=== PATIENT | female | born 1990 | race Caucasian/White ===

== ENCOUNTER 2021-03-02 14:39 | Outpatient (CLI) | payer OTHER ==
[2021-03-02 15:01] LABS: BASOPHILS # (AUTO) 0.1 10^3/uL (0.0-0.1); BASOPHILS % (AUTO) 0.5 %; EOSINOPHILS # (AUTO) 0.1 10^3/uL (0.0-0.7); HCT - HEMATOCRIT 36.1 % (37.0-47.0); HGB - HEMOGLOBIN 12.7 g/dL (12.0-16.0); LYMPHOCYTES # (AUTO) 3.1 10^3/uL (1.5-3.5); LYMPHOCYTES % (AUTO) 31.3 %; MEAN CORPUSCULAR HEMOGLOBIN 30.9 pg (27.0-31.0); MEAN CORPUSCULAR HGB CONC 35.2 g/dL (32.0-36.0); MEAN CORPUSCULAR VOLUME 87.8 fL (81.0-99.0); MEAN PLATELET VOLUME 9.9 fL (7.9-10.8); MONOCYTES # (AUTO) 0.4 10^3/uL (0.0-1.0); MONOCYTES % (AUTO) 4.4 %; NEUTROPHILS # (AUTO) 6.2 10^3/uL (1.5-6.6); NEUTROPHILS % (AUTO) 62.6 %; PLT - PLATELET COUNT 214 10^3/uL (130-450); RED BLOOD COUNT 4.11 10^6/uL (4.20-5.40); RED CELL DISTRIBUTION WIDTH 11.5 % (12.0-15.0); WHITE BLOOD COUNT 9.9 x10^3/uL (4.8-10.8)
[2021-03-03 11:16] LABS: HEPATITIS C ANTIBODY NON-REACTIVE (NON-REACTIVE)
[2021-03-03 11:17] LABS: HEPATITIS B SURFACE ANTIGEN NON-REACTIVE (NON-REACTIVE)
[2021-03-03 12:22] LABS: HIV AG/AB 4TH GEN NON-REACTIVE (NON-REACTIVE)
== END 2021-03-02 14:40 | disposition home or self-care (01) ==
LOC: LAB 14:39
PROVIDERS: ATTEND Obstetrics & Gynecology
DX: Z36.89 Encounter for other specified antenatal screening (principal)
CPT/HCPCS: 36415; 85025; 86592; 86762; 86787; 86803; 86850; 86900; 86901; 87340; 87389

== ENCOUNTER 2021-03-07 13:21 | Outpatient (CLI) | payer OTHER | END 2021-03-07 13:22 | disposition home or self-care (01) | LOC: LAB.S 13:21 | PROVIDERS: ATTEND Nurse Practitioner Obstetrics & Gynecology | DX: Z32.01 Encounter for pregnancy test, result positive (principal) | CPT/HCPCS: 36415; 84702 ==

== ENCOUNTER 2021-03-09 13:10 | Outpatient (CLI) | payer OTHER | END 2021-03-09 13:11 | disposition home or self-care (01) | LOC: LAB.S 13:10 | PROVIDERS: ATTEND Nurse Practitioner Obstetrics & Gynecology | DX: Z32.01 Encounter for pregnancy test, result positive (principal) | CPT/HCPCS: 36415; 84702; 84703 ==

== ENCOUNTER 2021-03-09 17:57 | Outpatient (CLI) | payer OTHER ==
--- NOTE | 2021-03-10 23:14 | Ultrasound Report ---
PROCEDURE: OB First Trimester w/TV INDICATIONS: TEST POSITIVE OUTSIDE/PRIOR DATING DATA: Last menstrual period (LMP): 12/25/2020. LMP-based estimated date of delivery (JUSTICE): 10/01/2021. First dating scan (date and location): 03/09/2021. Estimated date of delivery (JUSTICE) from first dating scan: Not calculated. TECHNIQUE: Real-time scanning was performed of the fetus and maternal pelvic organs, with image documentation. Endovaginal scanning was also performed to better visualize the fetus and maternal ovaries. COMPARISON: None. FINDINGS: Embryo: Single intrauterine gestational sac is visualized. There is a yolk sac measuring approximate ly 6.9 mm. Yolk sac is slightly irregular in shape. No pole seen. No cardiac activity clyde ntified. Estimated sonographic gestational age based off mean gestational sac diameter of approximate ly 3.1 cm correlates with 8 weeks and 2 days. Measurements were obtained transvaginally. No perigesta tional hemorrhage identified. Measurement variability in dating: +/- 4 weeks by LMP, +/- 7 days by mean sac diameter (use before 6 weeks gestation if crown-rump length not able to be measured), +/- 5 days by crown-rump length (6-12 weeks gestation). Maternal organs: Ovaries appear unremarkable with suspected 1.9 cm right corpus luteal cyst. Otherwi se, no suspicious ovarian or adnexal mass lesions. IMPRESSION: Single intrauterine gestation with estimated sonographic gestational age of approximately 8 weeks and 2 days based off mean gestational sac diameter of 31 mm measured transvaginally. No pole or fe misty cardiac activity identified. Slightly irregular shape of the yolk sac. Recommend continued clinic al surveillance and repeat imaging in 12-14 days to document presence of cardiac activity as ex pected for normal progression of . Consider correlating with serial quantitative hCG levels to document expected rate of rise of a normal prior to follow-up imaging. Reviewed by: Rich Adam MD on 03/10/2021 11:13 PM PDT Approved by: Rich Adam MD on 03/10/2021 11:13 PM PDT Station ID: [id number]
== END 2021-03-09 17:58 | disposition home or self-care (01) ==
LOC: DI 17:57
PROVIDERS: ATTEND Obstetrics & Gynecology
DX: Z32.01 Encounter for pregnancy test, result positive (principal)

== ENCOUNTER 2021-03-12 08:00 | Outpatient (CLI) | payer OTHER ==
[2021-03-12 21:14] LABS: BACTERIAL VAGINOSIS DNA NEGATIVE (NEGATIVE); CANDIDA GLABRATA DNA NEGATIVE (NEGATIVE); CANDIDA GROUP DNA NEGATIVE (NEGATIVE); CANDIDA KRUSEI DNA NEGATIVE (NEGATIVE); TRICHOMONAS VAGINALIS DNA NEGATIVE (NEGATIVE)
== END 2021-03-12 23:59 | disposition home or self-care (01) ==
LOC: LAB.WC 08:00
PROVIDERS: ATTEND Nurse Practitioner Obstetrics & Gynecology
DX: N89.8 Other specified noninflammatory disorders of vagina (principal)
CPT/HCPCS: 87661; 87801

== ENCOUNTER 2021-03-12 08:29 | Outpatient (CLI) | payer OTHER ==
[2021-03-12 08:55] LABS: HCT - HEMATOCRIT 35.9 % (37.0-47.0); HGB - HEMOGLOBIN 12.6 g/dL (12.0-16.0); MEAN CORPUSCULAR HEMOGLOBIN 31.4 pg (27.0-31.0); MEAN CORPUSCULAR HGB CONC 35.1 g/dL (32.0-36.0); MEAN CORPUSCULAR VOLUME 89.5 fL (81.0-99.0); MEAN PLATELET VOLUME 10.1 fL (7.9-10.8); RED BLOOD COUNT 4.01 10^6/uL (4.20-5.40); RED CELL DISTRIBUTION WIDTH 11.8 % (12.0-15.0); WHITE BLOOD COUNT 6.8 x10^3/uL (4.8-10.8)
== END 2021-03-12 08:30 | disposition home or self-care (01) ==
LOC: LAB 08:29
PROVIDERS: ATTEND Nurse Practitioner Obstetrics & Gynecology
DX: O02.1 Missed abortion (principal); N89.8 Other specified noninflammatory disorders of vagina; Z20.822 Contact with and (suspected) exposure to COVID-19
CPT/HCPCS: 36415; 85027; 86900; 86901; 87661; 87801

== ENCOUNTER 2021-03-13 11:48 | Day surgery (SDC) | payer OTHER ==
--- OUTSIDE RECORDS SUMMARY | 2021-03-13 11:55 | EXTERNAL MEDICAL SUMMARY RPT | Continuity of Care Document ---
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 Carmencita Unavailable Unavailable Medications date description facility 20210228 [id number] [facility] [place] 20210228 [id number] [facility] [place] 20210228 [id number] [facility] [place] 20210228 [id number]-FA All 20210228 [id number] All 20210228 [id number]-FA All Problems date description facility [id number] Vaginitis Pathogens-Affirm BPM ARCHITECT III [facility] 20210312 Other specified noninflammatory [facility] & disorders of vagina Ancillary Services [facility] 20210312 Vaginal discharge [facility] 20210312 Missed miscarriage [facility] 20210312 Missed [facility] 20210312 Leukorrhea, not specified as infective [facility] 20210312 COVID19 Testing [facility] 20210312 CBC AND PLATELETS w/o DIFF Walk[facility]In Cli xiomara [facility] 20210312 Blood Type [facility] 20210306 HCG QUANTITATIVE Walk[facility] 20210306 HCG, QUANTITATIVE All 20210228 Varicella Zoster Virus (VZV) Antibody, Walk[facility] & IgG Ancillary Services [facility] 20210228 Tobacco use and exposure [facility] 20210228 examination or test, positive [facility] result [facility] [place] 20210228 Hep C AB with Reflex [facility] [place] 20210228 Exercise Walk[facility]In [facility] [place] 20210228 Encounter for test, result W alk-In Clinic Primary Care & positive [facility] [place] 20210228 Details of drug misuse behavior [facility] [place] 20210228 test positive [facility] [place] 20210228 Employment detail [facility] [place] 20210228 Depressive disorder [facility] [place] 20210228 Chronic back pain [facility] 20210228 US TRANSVAGINAL, OB [facility] [place] 20210228 US OB <14 WEEKS [facility] 20210228 Health-related behavior [facility] 20210228 PROFILE All 20210228 Never smoker All 20210228 Tobacco smoking status NHIS All 20210228 Major depressive disorder, single All episode, unspecified 20210228 HIV 4TH GEN All 20210228 Encounter for other specified All screening 20210228 Dorsalgia, unspecified All 20210228 Depressive disorder, not elsewhere All classified 20210228 Backache, unspecified All 20210228 screening All 20210228 Alcohol use All Procedures date description facility 20210312 COVID19 Testing [facility] [place] 20210312 Blood Type [facility] [place] 20210312 CBC AND PLATELETS w/o DIFF [facility] [place] 20210312 Vaginitis Pathogens-Affirm BPM ARCHITECT III [facility] [place] 20210312 COVID19 Testing [facility] [place] 20210312 Blood Type [facility] [place] 20210312 CBC AND PLATELETS w/o DIFF [facility] [place] 20210306 HCG, QUANTITATIVE Walk[facility] [place] 20210306 HCG QUANTITATIVE [facility] [place] 20210306 HCG, QUANTITATIVE [facility] [place] 20210306 HCG QUANTITATIVE [facility] [place] 20210306 HCG, QUANTITATIVE [facility] [place] 20210306 HCG QUANTITATIVE [facility] [place] [id number] HCG, QUANTITATIVE All 20210306 HCG QUANTITATIVE All 20210228 HIV 4TH GEN [facility] [place] 20210228 Varicella Zoster Virus (VZV) Antibody, [facility] IgG [facility] [place] 20210228 POC CHORIONIC GONADOTROPIN ASSAY [facility] [place] 20210228 PROFILE [facility] [place] 20210228 US OB <14 WEEKS [facility] [place] 20210228 Hep C AB with Reflex [facility] [place] 20210228 HIV 4TH GEN [facility] [place] 20210228 Varicella Zoster Virus (VZV) Antibody, [facility] [place] 20210228 POC CHORIONIC GONADOTROPIN ASSAY [facility] [place] 20210228 PROFILE [facility] [place] 20210228 Hep C AB with Reflex [facility] [place] 20210228 HIV 4TH GEN [facility] [place] 20210228 Varicella Zoster Virus (VZV) Antibody, [facility] IgG [facility] [place] 20210228 POC CHORIONIC GONADOTROPIN ASSAY [facility] [place] 20210228 PROFILE [facility] [place] 20210228 US OB <14 WEEKS [facility] [place] 20210228 Hep C AB with Reflex [facility] [place] 20210228 POC CHORIONIC GONADOTROPIN ASSAY All 20210228 HIV 4TH GEN All 20210228 Varicella Zoster Virus (VZV) Antibody, All IgG 20210228 POC CHORIONIC GONADOTROPIN ASSAY All 20210228 PROFILE All 20210228 Hep C AB with Reflex All 20210228 HIV 4TH GEN All 20210228 Varicella Zoster Virus (VZV) Antibody, All IgG 20210228 POC CHORIONIC GONADOTROPIN ASSAY All 20210228 PROFILE All 20210228 Hep C AB with Reflex All Results test status date ordered by attending specimen tomás e Erythrocytes_volume_in unknown 30862010 unknown unknown unknown _Blood_by_Automated_cou nt Erythrocyte_distributi unknown [id number] unknown unknown unknown on_width_Ratio_by_Autom ated_count MCV_Entitic_volume_by_ unknown 88923704 unknown unknown unknown Automated_count MCH_Entitic_mass_by_Au unknown 15409690 unknown unknown unknown tomated_count Platelets_volume_in_Bl unknown 18561191 unknown unknown unknown ood_by_Automated_count Platelet_mean_volume_E unknown 09945858 unknown unknown unknown ntitic_volume_in_Blood_ by_Rees-Brina Hemoglobin_Mass_volume unknown 04757244 unknown unknown unknown _in_Blood Candida_glabrata_DNA_P unknown 73785127 unknown unknown unknown resence_in_Vaginal_flui d_by_NAA_with_probe_det ection leukocyte_count_blood unknown 44461383 unknown unknown u nknown erythrocyte_RBC_count unknown 02062250 unknown unknown u nknown Leukocytes_volume_in_B unknown 67556060 unknown unknown unknown lood_by_Automated_count _2019NCoV_COVID-19_Lab unknown 62603431 unknown unknown unknown _Test_Result_Text_ platelet_count unknown 55335117 unknown unknown unknown hemoglobin_blood unknown 47927742 unknown unknown unknow n hematocrit_blood unknown 83513880 unknown unknown unknow n Hematocrit_Volume_Frac unknown 06561512 unknown unknown unknown tion_of_Blood_by_Automa ted_count mean_corpuscular_volum unknown 76223747 unknown unknown unknown e_RBC mean_platelet_volume unknown 53785493 unknown unknown un known mean_corpuscular_hemog unknown 80420611 unknown unknown unknown lobin_concentration_rbc Candida_krusei_by_Real unknown 09691300 unknown unknown unknown -Time_PCR Candida_glabrata_by_Re unknown 73375790 unknown unknown unknown vs-ofdx_PVC_-_rwrbzku_v ulture mean_corpuscular_hemog unknown 67668833 unknown unknown unknown lobin_RBC red_blood_cell_distrib unknown 40918339 unknown unknown unknown ution_width T unknown 00874300 unknown unknown unknown T unknown 75416390 unknown unknown unknown T unknown 09678150 unknown unknown unknown T unknown 60388897 unknown unknown unknown T unknown 36936262 unknown unknown unknown T unknown 39821888 unknown unknown unknown T unknown 91728974 unknown unknown unknown T unknown 60544782 unknown unknown unknown T unknown 09594494 unknown unknown unknown T unknown 76591300 unknown unknown unknown COVID-19_REFERENCE_TES unknown 81313116 unknown unknown unknown T T unknown 29287715 unknown unknown unknown CANDIDA_KRUSEI_DNA unknown 51453839 unknown unknown unkn own CANDIDA_GLABRATA_DNA unknown 27670246 unknown unknown un known T unknown 24000065 unknown unknown unknown T unknown 30317183 unknown unknown unknown SIGNAL_TO_CUT-OFF unknown 80877041 unknown unknown unkno wn hepatitis_B_surface_an unknown 28921849 unknown unknown unknown tigen Erythrocytes_volume_in unknown 81126446 unknown unknown unknown _Blood_by_Automated_cou nt Erythrocyte_distributi unknown 18486195 unknown unknown unknown on_width_Ratio_by_Autom ated_count MCV_Entitic_volume_by_ unknown 27183683 unknown unknown unknown Automated_count MCH_Entitic_mass_by_Au unknown 45647339 unknown unknown unknown tomated_count Platelets_volume_in_Bl unknown 83910297 unknown unknown unknown ood_by_Automated_count Platelet_mean_volume_E unknown 22275458 unknown unknown unknown ntitic_volume_in_Blood_ by_Rees-Brina neutrophil_count_blood unknown 02235886 unknown unknown unknown monocyte_count_blood unknown 76979845 unknown unknown un known lymphocyte_count_blood unknown 08226476 unknown unknown unknown Hemoglobin_Mass_volume unknown 17667290 unknown unknown unknown _in_Blood eosinophil_count_blood unknown 71931983 unknown unknown unknown Basophils_volume_in_Bl unknown 30428029 unknown unknown unknown ood_by_Manual_count leukocyte_count_blood unknown 73824704 unknown unknown u nknown erythrocyte_RBC_count unknown 37151192 unknown unknown u nknown Leukocytes_volume_in_B unknown 15109137 unknown unknown unknown lood_by_Automated_count platelet_count unknown 32809677 unknown unknown unknown hemoglobin_blood unknown 72445806 unknown unknown unknow n hematocrit_blood unknown 15955248 unknown unknown unknow n varicella_zoster_antib unknown 45246870 unknown unknown unknown ody_IgG_serum Reagin_Ab_Units_volume unknown 60487722 unknown unknown unknown _in_Serum_by_VDRL hepatitis_B_surface_an unknown 95939915 unknown unknown unknown tigen Hematocrit_Volume_Frac unknown 93765006 unknown unknown unknown tion_of_Blood_by_Automa ted_count mean_corpuscular_volum unknown 42186357 unknown unknown unknown e_RBC rapid_plasma_reagin_an unknown 69429598 unknown unknown unknown tibody_serum eosinophil_count_blood unknown 45104397 unknown unknown unknown mean_platelet_volume unknown 98243446 unknown unknown un known varicella_zoster_antib unknown 16106879 unknown unknown unknown ody_IgG_serum basophil_count_blood unknown 15177265 unknown unknown un known monocyte_count_blood unknown 44757270 unknown unknown un known lymphocyte_count_blood unknown 88909335 unknown unknown unknown neutrophil_count_blood unknown 03261334 unknown unknown unknown mean_corpuscular_hemog unknown 87393196 unknown unknown unknown lobin_concentration_rbc Hepatitis_C_Antibody_S unknown 01891763 unknown unknown unknown ignal_to_Cut-Off mean_corpuscular_hemog unknown 39048373 unknown unknown unknown lobin_RBC red_blood_cell_distrib unknown 31436838 unknown unknown unknown ution_width T unknown 83515080 unknown unknown unknown T unknown 62756802 unknown unknown unknown T unknown 61645608 unknown unknown unknown T unknown 27415577 unknown unknown unknown T unknown 07635853 unknown unknown unknown NEUTROPHILS_AUTO_ unknown 76048972 unknown unknown unkno wn T unknown 80250374 unknown unknown unknown T unknown 23893849 unknown unknown unknown MONOCYTES_AUTO_ unknown 41924062 unknown unknown unknown T unknown 59975686 unknown unknown unknown T unknown 80592200 unknown unknown unknown T unknown 13211518 unknown unknown unknown T unknown 11873806 unknown unknown unknown LYMPHOCYTES_AUTO_ unknown 90517890 unknown unknown unkno wn T unknown 67777947 unknown unknown unknown T unknown 90949463 unknown unknown unknown T unknown 45761759 unknown unknown unknown EOSINOPHILS_AUTO_ unknown 46753206 unknown unknown unkno wn T unknown 79274913 unknown unknown unknown BASOPHILS_AUTO_ unknown 80941831 unknown unknown unknown T unknown 95417064 unknown unknown unknown SIGNAL_TO_CUT-OFF unknown 53742956 unknown unknown unkno wn hepatitis_B_surface_an unknown 52863282 unknown unknown unknown tigen Erythrocytes_volume_in unknown 38711016 unknown unknown unknown _Blood_by_Automated_cou nt Erythrocyte_distributi unknown 52729700 unknown unknown unknown on_width_Ratio_by_Autom ated_count MCV_Entitic_volume_by_ unknown 98873197 unknown unknown unknown Automated_count MCH_Entitic_mass_by_Au unknown 84392657 unknown unknown unknown tomated_count Platelets_volume_in_Bl unknown 83154625 unknown unknown unknown ood_by_Automated_count Platelet_mean_volume_E unknown 62656983 unknown unknown unknown ntitic_volume_in_Blood_ by_Rees-Brina neutrophil_count_blood unknown 13253263 unknown unknown unknown monocyte_count_blood unknown 25345159 unknown unknown un known lymphocyte_count_blood unknown 59695033 unknown unknown unknown Hemoglobin_Mass_volume unknown 83920570 unknown unknown unknown _in_Blood eosinophil_count_blood unknown 94532065 unknown unknown unknown Basophils_volume_in_Bl unknown 84979407 unknown unknown unknown ood_by_Manual_count leukocyte_count_blood unknown 98810119 unknown unknown u nknown erythrocyte_RBC_count unknown 14003248 unknown unknown u nknown Leukocytes_volume_in_B unknown 31105049 unknown unknown unknown lood_by_Automated_count platelet_count unknown 65669478 unknown unknown unknown hemoglobin_blood unknown 36583387 unknown unknown unknow n hematocrit_blood unknown 50971308 unknown unknown unknow n varicella_zoster_antib unknown 17614952 unknown unknown unknown ody_IgG_serum Reagin_Ab_Units_volume unknown 08750178 unknown unknown unknown _in_Serum_by_VDRL hepatitis_B_surface_an unknown 00849424 unknown unknown unknown tigen Hematocrit_Volume_Frac unknown 54689061 unknown unknown unknown tion_of_Blood_by_Automa ted_count mean_corpuscular_volum unknown 67219425 unknown unknown unknown e_RBC rapid_plasma_reagin_an unknown 01573574 unknown unknown unknown tibody_serum eosinophil_count_blood unknown 48939880 unknown unknown unknown mean_platelet_volume unknown 70656805 unknown unknown un known varicella_zoster_antib unknown 84233362 unknown unknown unknown ody_IgG_serum basophil_count_blood unknown 93935366 unknown unknown un known monocyte_count_blood unknown 19875407 unknown unknown un known lymphocyte_count_blood unknown 81994555 unknown unknown unknown neutrophil_count_blood unknown 12447371 unknown unknown unknown mean_corpuscular_hemog unknown 50478497 unknown unknown unknown lobin_concentration_rbc Hepatitis_C_Antibody_S unknown 99650941 unknown unknown unknown ignal_to_Cut-Off mean_corpuscular_hemog unknown 68897531 unknown unknown unknown lobin_RBC red_blood_cell_distrib unknown 88547683 unknown unknown unknown ution_width T unknown 65770251 unknown unknown unknown T unknown 58116344 unknown unknown unknown T unknown 41778886 unknown unknown unknown T unknown 24292005 unknown unknown unknown T unknown 42916468 unknown unknown unknown NEUTROPHILS_AUTO_ unknown 88870133 unknown unknown unkno wn T unknown 34925897 unknown unknown unknown T unknown 84252588 unknown unknown unknown MONOCYTES_AUTO_ unknown 64431742 unknown unknown unknown T unknown 67928057 unknown unknown unknown T unknown 84675223 unknown unknown unknown T unknown 16182990 unknown unknown unknown T unknown 11817120 unknown unknown unknown LYMPHOCYTES_AUTO_ unknown 19255709 unknown unknown unkno wn T unknown 14634744 unknown unknown unknown T unknown 92234155 unknown unknown unknown T unknown 11279368 unknown unknown unknown EOSINOPHILS_AUTO_ unknown 64527345 unknown unknown unkno wn T unknown 30622642 unknown unknown unknown BASOPHILS_AUTO_ unknown 88929239 unknown unknown unknown T unknown 53435128 unknown unknown unknown SIGNAL_TO_CUT-OFF unknown 59673253 unknown unknown unkno wn hepatitis_B_surface_an unknown 39589933 unknown unknown unknown tigen Erythrocytes_volume_in unknown 25642757 unknown unknown unknown _Blood_by_Automated_cou nt Erythrocyte_distributi unknown 61876831 unknown unknown unknown on_width_Ratio_by_Autom ated_count MCV_Entitic_volume_by_ unknown 82880987 unknown unknown unknown Automated_count MCH_Entitic_mass_by_Au unknown 15126913 unknown unknown unknown tomated_count Platelets_volume_in_Bl unknown 15955782 unknown unknown unknown ood_by_Automated_count Platelet_mean_volume_E unknown 28823781 unknown unknown unknown ntitic_volume_in_Blood_ by_Rees-Brina neutrophil_count_blood unknown 19367152 unknown unknown unknown monocyte_count_blood unknown 47707905 unknown unknown un known lymphocyte_count_blood unknown 65058455 unknown unknown unknown Hemoglobin_Mass_volume unknown 02163933 unknown unknown unknown _in_Blood eosinophil_count_blood unknown 91075635 unknown unknown unknown Basophils_volume_in_Bl unknown 49955448 unknown unknown unknown ood_by_Manual_count leukocyte_count_blood unknown 40867230 unknown unknown u nknown erythrocyte_RBC_count unknown 79102175 unknown unknown u nknown Leukocytes_volume_in_B unknown 29785060 unknown unknown unknown lood_by_Automated_count platelet_count unknown 47914611 unknown unknown unknown hemoglobin_blood unknown 27837002 unknown unknown unknow n hematocrit_blood unknown 78457923 unknown unknown unknow n varicella_zoster_antib unknown 71036890 unknown unknown unknown ody_IgG_serum Reagin_Ab_Units_volume unknown 69597843 unknown unknown unknown _in_Serum_by_VDRL hepatitis_B_surface_an unknown 25594307 unknown unknown unknown tigen Hematocrit_Volume_Frac unknown 34060193 unknown unknown unknown tion_of_Blood_by_Automa ted_count mean_corpuscular_volum unknown 23285541 unknown unknown unknown e_RBC rapid_plasma_reagin_an unknown 88938357 unknown unknown unknown tibody_serum eosinophil_count_blood unknown 35723331 unknown unknown unknown mean_platelet_volume unknown 46183813 unknown unknown un known varicella_zoster_antib unknown 79641357 unknown unknown unknown ody_IgG_serum basophil_count_blood unknown 01709992 unknown unknown un known monocyte_count_blood unknown 24097152 unknown unknown un known lymphocyte_count_blood unknown 39504070 unknown unknown unknown neutrophil_count_blood unknown 14321961 unknown unknown unknown mean_corpuscular_hemog unknown 10367408 unknown unknown unknown lobin_concentration_rbc Hepatitis_C_Antibody_S unknown 42699664 unknown unknown unknown ignal_to_Cut-Off mean_corpuscular_hemog unknown 38570961 unknown unknown unknown lobin_RBC red_blood_cell_distrib unknown 39016153 unknown unknown unknown ution_width T unknown 73991920 unknown unknown unknown T unknown 84269533 unknown unknown unknown T unknown 07687751 unknown unknown unknown T unknown 32039823 unknown unknown unknown T unknown 55232107 unknown unknown unknown NEUTROPHILS_AUTO_ unknown 36797165 unknown unknown unkno wn T unknown 90714402 unknown unknown unknown T unknown 63853527 unknown unknown unknown MONOCYTES_AUTO_ unknown 49997197 unknown unknown unknown T unknown 54803423 unknown unknown unknown T unknown 46855067 unknown unknown unknown T unknown 02902600 unknown unknown unknown T unknown 47707925 unknown unknown unknown LYMPHOCYTES_AUTO_ unknown 45871669 unknown unknown unkno wn T unknown 06279315 unknown unknown unknown T unknown 66621624 unknown unknown unknown T unknown 47086892 unknown unknown unknown EOSINOPHILS_AUTO_ unknown 64404066 unknown unknown unkno wn T unknown 56728395 unknown unknown unknown BASOPHILS_AUTO_ unknown 32417531 unknown unknown unknown T unknown 64765673 unknown unknown unknown SIGNAL_TO_CUT-OFF unknown 40373705 unknown unknown unkno wn Erythrocytes_volume_in unknown 75466753 unknown unknown unknown _Blood_by_Automated_cou nt Erythrocyte_distributi unknown 68545794 unknown unknown unknown on_width_Ratio_by_Autom ated_count MCV_Entitic_volume_by_ unknown 18999314 unknown unknown unknown Automated_count MCH_Entitic_mass_by_Au unknown 34988974 unknown unknown unknown tomated_count Platelets_volume_in_Bl unknown 11630045 unknown unknown unknown ood_by_Automated_count Platelet_mean_volume_E unknown 38473283 unknown unknown unknown ntitic_volume_in_Blood_ by_Rees-Brina neutrophil_count_blood unknown 72663508 unknown unknown unknown monocyte_count_blood unknown 34997001 unknown unknown un known lymphocyte_count_blood unknown 44497046 unknown unknown unknown Hemoglobin_Mass_volume unknown 04054495 unknown unknown unknown _in_Blood eosinophil_count_blood unknown 98090482 unknown unknown unknown Basophils_volume_in_Bl unknown 14544110 unknown unknown unknown ood_by_Manual_count leukocyte_count_blood unknown 88367797 unknown unknown u nknown erythrocyte_RBC_count unknown 36008565 unknown unknown u nknown Leukocytes_volume_in_B unknown 98081110 unknown unknown unknown lood_by_Automated_count platelet_count unknown 25224292 unknown unknown unknown hemoglobin_blood unknown 29603399 unknown unknown unknow n hematocrit_blood unknown 82970056 unknown unknown unknow n Hematocrit_Volume_Frac unknown 06441847 unknown unknown unknown tion_of_Blood_by_Automa ted_count mean_corpuscular_volum unknown 00521501 unknown unknown unknown e_RBC eosinophil_count_blood unknown 50799967 unknown unknown unknown mean_platelet_volume unknown 28009640 unknown unknown un known basophil_count_blood unknown 41157578 unknown unknown un known monocyte_count_blood unknown 00377134 unknown unknown un known lymphocyte_count_blood unknown 90743301 unknown unknown unknown neutrophil_count_blood unknown 73228161 unknown unknown unknown mean_corpuscular_hemog unknown 56051263 unknown unknown unknown lobin_concentration_rbc Hepatitis_C_Antibody_S unknown 96184255 unknown unknown unknown ignal_to_Cut-Off mean_corpuscular_hemog unknown 20792810 unknown unknown unknown lobin_RBC red_blood_cell_distrib unknown 68591875 unknown unknown unknown ution_width T unknown 51076728 unknown unknown unknown T unknown 79983848 unknown unknown unknown T unknown 53357020 unknown unknown unknown T unknown 59451474 unknown unknown unknown T unknown 23222808 unknown unknown unknown NEUTROPHILS_AUTO_ unknown 74898917 unknown unknown unkno wn T unknown 05535351 unknown unknown unknown T unknown 48812156 unknown unknown unknown MONOCYTES_AUTO_ unknown 26452924 unknown unknown unknown T unknown 46158565 unknown unknown unknown T unknown 20278405 unknown unknown unknown T unknown 06838245 unknown unknown unknown T unknown 26306536 unknown unknown unknown LYMPHOCYTES_AUTO_ unknown 54458887 unknown unknown unkno wn T unknown 65892064 unknown unknown unknown T unknown 74803786 unknown unknown unknown T unknown 68629954 unknown unknown unknown EOSINOPHILS_AUTO_ unknown [id number] unknown unknown unkno wn T unknown [id number] unknown unknown unknown BASOPHILS_AUTO_ unknown [id number] unknown unknown unknown T unknown [id number] unknown unknown unknown SIGNAL_TO_CUT-OFF unknown [id number] unknown unknown unkno wn Erythrocytes_volume_in unknown 05180031 unknown unknown unknown _Blood_by_Automated_cou nt Erythrocyte_distributi unknown [id number] unknown unknown unknown on_width_Ratio_by_Autom ated_count MCV_Entitic_volume_by_ unknown [id number] unknown unknown unknown Automated_count MCH_Entitic_mass_by_Au unknown 62140760 unknown unknown unknown tomated_count Platelets_volume_in_Bl unknown 81032440 unknown unknown unknown ood_by_Automated_count Platelet_mean_volume_E unknown 01470417 unknown unknown unknown ntitic_volume_in_Blood_ by_Rees-Brina neutrophil_count_blood unknown 87442263 unknown unknown unknown monocyte_count_blood unknown 51124543 unknown unknown un known lymphocyte_count_blood unknown 48386702 unknown unknown unknown Hemoglobin_Mass_volume unknown 65703461 unknown unknown unknown _in_Blood eosinophil_count_blood unknown 10736804 unknown unknown unknown Basophils_volume_in_Bl unknown 26233378 unknown unknown unknown ood_by_Manual_count leukocyte_count_blood unknown 52199317 unknown unknown u nknown erythrocyte_RBC_count unknown 10968160 unknown unknown u nknown Leukocytes_volume_in_B unknown 85156596 unknown unknown unknown lood_by_Automated_count platelet_count unknown 71774018 unknown unknown unknown hemoglobin_blood unknown 95690686 unknown unknown unknow n hematocrit_blood unknown 50229250 unknown unknown unknow n Hematocrit_Volume_Frac unknown 81153787 unknown unknown unknown tion_of_Blood_by_Automa ted_count mean_corpuscular_volum unknown 03618186 unknown unknown unknown e_RBC eosinophil_count_blood unknown 52649483 unknown unknown unknown mean_platelet_volume unknown 38358193 unknown unknown un known basophil_count_blood unknown 08946476 unknown unknown un known monocyte_count_blood unknown 65626597 unknown unknown un known lymphocyte_count_blood unknown 45936262 unknown unknown unknown neutrophil_count_blood unknown 38497972 unknown unknown unknown mean_corpuscular_hemog unknown 01871293 unknown unknown unknown lobin_concentration_rbc Hepatitis_C_Antibody_S unknown 31434346 unknown unknown unknown ignal_to_Cut-Off mean_corpuscular_hemog unknown 77544530 unknown unknown unknown lobin_RBC red_blood_cell_distrib unknown 00696187 unknown unknown unknown ution_width T unknown 67647071 unknown unknown unknown T unknown 75071124 unknown unknown unknown T unknown 19255652 unknown unknown unknown T unknown 61363196 unknown unknown unknown T unknown 70967023 unknown unknown unknown NEUTROPHILS_AUTO_ unknown 51207146 unknown unknown unkno wn T unknown [id number] unknown unknown unknown T unknown 40916322 unknown unknown unknown MONOCYTES_AUTO_ unknown 28402743 unknown unknown unknown T unknown 27590341 unknown unknown unknown T unknown [id number] unknown unknown unknown T unknown 07475647 unknown unknown unknown T unknown [id number] unknown unknown unknown LYMPHOCYTES_AUTO_ unknown 73401055 unknown unknown unkno wn T unknown 41140989 unknown unknown unknown T unknown 99147153 unknown unknown unknown T unknown 65671810 unknown unknown unknown EOSINOPHILS_AUTO_ unknown 99679574 unknown unknown unkno wn T unknown 52217595 unknown unknown unknown BASOPHILS_AUTO_ unknown [id number] unknown unknown unknown T unknown 45671992 unknown unknown unknown culture_status unknown 68282275 unknown unknown unknown urinalysis_routine unknown 69646758 unknown unknown unkn own Herpes_Simplex_Virus_G unknown 71583653 unknown unknown unknown enital human_chorionic_gonado unknown 78054423 unknown unknown unknown tropin_urine_qualitativ e_urine_pregnancy_test_ Choriogonadotropin_pre unknown 71931166 unknown unknown unknown gnancy_test_Presence_in _Urine Urine_HCG_QC_Result_CL unknown 99170896 unknown unknown unknown IA_Waived_ Urine_HCG_Exp_Date_CLI unknown 92474263 unknown unknown unknown A_Waived_ Urine_HCG_Lot_Number_C unknown 19816753 unknown unknown unknown LIA_Waived_ culture_status unknown 79754989 unknown unknown unknown urinalysis_routine unknown 66240339 unknown unknown unkn own Herpes_Simplex_Virus_G unknown 00735579 unknown unknown unknown enital human_chorionic_gonado unknown 54607720 unknown unknown unknown tropin_urine_qualitativ e_urine_pregnancy_test_ Choriogonadotropin_pre unknown 72817468 unknown unknown unknown gnancy_test_Presence_in _Urine Urine_HCG_QC_Result_CL unknown 55622182 unknown unknown unknown IA_Waived_ Urine_HCG_Exp_Date_CLI unknown 52479130 unknown unknown unknown A_Waived_ Urine_HCG_Lot_Number_C unknown 96783974 unknown unknown unknown LIA_Waived_ culture_status unknown 90180201 unknown unknown unknown urinalysis_routine unknown 37185360 unknown unknown unkn own Herpes_Simplex_Virus_G unknown 41480990 unknown unknown unknown enital human_chorionic_gonado unknown 93484152 unknown unknown unknown tropin_urine_qualitativ e_urine_pregnancy_test_ Choriogonadotropin_pre unknown 14405517 unknown unknown unknown gnancy_test_Presence_in _Urine Urine_HCG_QC_Result_CL unknown 81999199 unknown unknown unknown IA_Waived_ Urine_HCG_Exp_Date_CLI unknown 14445254 unknown unknown unknown A_Waived_ Urine_HCG_Lot_Number_C unknown 33079403 unknown unknown unknown LIA_Waived_ culture_status unknown 96584334 unknown unknown unknown urinalysis_routine unknown 66163949 unknown unknown unkn own Herpes_Simplex_Virus_G unknown 53638726 unknown unknown unknown enital human_chorionic_gonado unknown 31530348 unknown unknown unknown tropin_urine_qualitativ e_urine_pregnancy_test_ Choriogonadotropin_pre unknown 24059555 unknown unknown unknown gnancy_test_Presence_in _Urine Urine_HCG_QC_Result_CL unknown 36662572 unknown unknown unknown IA_Waived_ Urine_HCG_Exp_Date_CLI unknown 12785246 unknown unknown unknown A_Waived_ Urine_HCG_Lot_Number_C unknown 49006111 unknown unknown unknown LIA_Waived_ culture_status unknown 38691267 unknown unknown unknown urinalysis_routine unknown 35973021 unknown unknown unkn own Herpes_Simplex_Virus_G unknown 38651481 unknown unknown unknown enital human_chorionic_gonado unknown 18394077 unknown unknown unknown tropin_urine_qualitativ e_urine_pregnancy_test_ Choriogonadotropin_pre unknown 33125891 unknown unknown unknown gnancy_test_Presence_in _Urine Urine_HCG_QC_Result_CL unknown 63400310 unknown unknown unknown IA_Waived_ Urine_HCG_Exp_Date_CLI unknown 70047239 unknown unknown unknown A_Waived_ Urine_HCG_Lot_Number_C unknown 22166267 unknown unknown unknown LIA_Waived_ culture_status unknown 23918971 unknown unknown unknown urinalysis_routine unknown 42977957 unknown unknown unkn own Herpes_Simplex_Virus_G unknown 57114178 unknown unknown unknown enital human_chorionic_gonado unknown 80968144 unknown unknown unknown tropin_urine_qualitativ e_urine_pregnancy_test_ Choriogonadotropin_pre unknown 81495356 unknown unknown unknown gnancy_test_Presence_in _Urine Urine_HCG_QC_Result_CL unknown [id number] unknown unknown unknown IA_Waived_ Urine_HCG_Exp_Date_CLI unknown 20210228 unknown unknown unknown A_Waived_ Urine_HCG_Lot_Number_C unknown 20210228 unknown unknown unknown LIA_Waived_ facility observation status value reference units lab abnor mal line range code notes [facility] Erythrocytes unknown 4.01 10 unknown _789-8 unkno wn unknown Clinic _volume_in_Bl 6/UL Primary ood_by_Automa Care & ted_count [facility] Erythrocyte_ unknown 11.8 unknown % _788-0 unknow n unknown Clinic distribution_ Primary width_Ratio_b Care & y_Automated_c Ancillary ount [facility] MCV_Entitic_ unknown 89.5 unknown fL _787-2 unknow n unknown Clinic volume_by_Aut Primary omated_count Care & [facility] MCH_Entitic_ unknown 31.4 unknown pg _785-6 unknow n unknown Clinic mass_by_Autom Primary ated_count Care & [facility] Platelets_vo unknown 209 10 unknown _777-3 unknow n unknown Clinic lume_in_Blood 3/UL Primary _by_Automated Care & _count [facility] Platelet_mea unknown 10.1 unknown fL _776-5 unknow n unknown Clinic n_volume_Enti Primary tic_volume_in Care & _Blood_by_Ree Ancillary s-Brina [facility] Hemoglobin_M unknown 12.6 unknown g/dL _718-7 unknow n unknown Clinic ass_volume_in Primary _Blood Care & [facility] Candida_glab unknown NEGATIVE unknown _69563- unk nown unknown Clinic rata_DNA_Pres 5 Primary ence_in_Vagin Care & al_fluid_by_N Ancillary AA_with_probe Services _detection [facility] leukocyte_co unknown 6.8 X10 unknown _68 unkno wn unknown Clinic unt_blood 3/UL [facility] erythrocyte_ unknown 4.01 10 unknown _67 unkno wn unknown Clinic RBC_count 6/UL [facility] Leukocytes_v unknown 6.8 X10 unknown _6690-2 unkn own unknown Clinic olume_in_Bloo 3/UL Primary d_by_Automate Care & d_count [facility] _2019NCoV_CO unknown NEGATIVE unknown _[id number] unk nown unknown Clinic VID-19_Lab_Te Primary st_Result_[place] Care & t_ [facility] platelet_cou unknown 209 10 unknown _66 unknow n unknown Clinic nt 3/UL [facility] hemoglobin_b unknown 12.6 unknown g/dL _65 unknow n unknown Clinic lood [facility] hematocrit_b unknown 35.9 unknown % _64 unknow n unknown Clinic lood [facility] Hematocrit_V unknown 35.9 unknown % _4544-3 unkno wn unknown Clinic olume_Fractio Primary n_of_Blood_by Care & _Automated_co Ancillary unt [facility] mean_corpusc unknown 89.5 unknown fL _315 unknow n unknown Clinic ular_volume_R Primary BC Care & [facility] mean_platele unknown 10.1 unknown fL _2784 unknow n unknown Clinic t_volume Primary [facility] mean_corpusc unknown 35.1 unknown g/dL _17029 unknow n unknown Clinic ular_hemoglob Primary in_concentrat Care & ion_rbc [facility] Candida_krus unknown NEGATIVE unknown _153562 unk nown unknown Clinic ei_by_Real-Ti Primary me_PCR Care & [facility] Candida_glab unknown NEGATIVE unknown _108787 unk nown unknown Clinic rata_by_Real- Primary time_PCR_-_va Care & ginal_culture [facility] mean_corpusc unknown 31.4 unknown pg _1031 unknow n unknown Clinic ular_hemoglob Primary in_RBC Care & [facility] red_blood_ce unknown 11.8 unknown % _1030 unknow n unknown Clinic ll_distributi Primary on_width Care & [facility] T unknown 6.8 X10 unknown WBC unknown un known Clinic 3/UL [facility] T unknown 11.8 unknown % RDW unknown unk nown Clinic [facility] T unknown 4.01 10 unknown RBC unknown un known Clinic 6/UL [facility] T unknown 209 10 unknown PLT unknown [facility] 3/UL Primary [facility] T unknown 10.1 unknown fL MPV unknown [facility] T unknown 89.5 unknown fL MCV unknown [facility] T unknown 35.1 unknown g/dL MCHC unknown [facility] T unknown 31.4 unknown pg MCH unknown [facility] T unknown 12.6 unknown g/dL HGB unknown [facility] T unknown 35.9 unknown % HCT unknown [facility] COVID-19_REF unknown NEGATIVE unknown COVID19 [facility] unknown Clinic ERENCE_TEST .REF [facility] T unknown NEGATIVE unknown COVID-1 unknown unknown Clinic 9 [facility] CANDIDA_KRUS unknown NEGATIVE unknown CKRUSEI [facility] unknown Clinic EI_DNA _DNA [facility] CANDIDA_GLAB unknown NEGATIVE unknown CGLABRA [facility] unknown Clinic RATA_DNA TA_DNA [facility] T unknown NEGATIVE unknown C._KRUS unknown unknown Clinic EI_DNA [facility] T unknown NEGATIVE unknown C._GLAB unknown unknown Clinic RATA_DNA [facility] SIGNAL_TO_CU unknown 0.00 unknown qSIGNAL unkno wn unknown Clinic T-OFF [facility] hepatitis_B_ unknown negative unknown _79 unkn own unknown Clinic surface_antig Primary en Care & [facility] Erythrocytes unknown 4.11 10 unknown _789-8 unkno wn unknown Clinic _volume_in_Bl 6/UL Primary ood_by_Automa Care & ted_count [facility] Erythrocyte_ unknown 11.5 unknown % _788-0 unknow n unknown Clinic distribution_ Primary width_Ratio_b Care & y_Automated_c Ancillary ount [facility] MCV_Entitic_ unknown 87.8 unknown fL _787-2 unknow n unknown Clinic volume_by_Aut Primary omated_count Care & [facility] MCH_Entitic_ unknown 30.9 unknown pg _785-6 unknow n unknown Clinic mass_by_Autom Primary ated_count Care & [facility] Platelets_vo unknown 214 10 unknown _777-3 unknow n unknown Clinic lume_in_Blood 3/UL Primary _by_Automated Care & _count [facility] Platelet_mea unknown 9.9 unknown fL _776-5 unknow n unknown Clinic n_volume_Enti Primary tic_volume_in Care & _Blood_by_Ree Anc[facility]-Brina [facility] neutrophil_c unknown 6.2 10 unknown _752-6 unknow n unknown Clinic ount_blood 3/UL [facility] monocyte_cou unknown 0.4 10 unknown _743-5 unknow n unknown Clinic nt_blood 3/UL [facility] lymphocyte_c unknown 3.1 10 unknown _732-8 unknow n unknown Clinic ount_blood 3/UL [facility] Hemoglobin_M unknown 12.7 unknown g/dL _718-7 unknow n unknown Clinic ass_volume_in Primary _Blood Care & [facility] eosinophil_c unknown 0.1 10 unknown _712-0 unknow n unknown Clinic ount_blood 3/UL [facility] Basophils_vo unknown 0.1 10 unknown _705-4 unknow n unknown Clinic lume_in_Blood 3/UL Primary _by_Manual_co Care & unt Ancillary Services [facility] leukocyte_co unknown 9.9 X10 unknown _68 unkno wn unknown Clinic unt_blood 3/UL [facility] erythrocyte_ unknown 4.11 10 unknown _67 unkno wn unknown Clinic RBC_count 6/UL [facility] Leukocytes_v unknown 9.9 X10 unknown _6690-2 unkn own unknown Clinic olume_in_Bloo 3/UL Primary d_by_Automate Care & d_count [facility] platelet_cou unknown 214 10 unknown _66 unknow n unknown Clinic nt 3/UL [facility] hemoglobin_b unknown 12.7 unknown g/dL _65 unknow n unknown Clinic lood [facility] hematocrit_b unknown 36.1 unknown % _64 unknow n unknown Clinic lood [facility] varicella_zo unknown positive unknown _5403-1 unk nown unknown Clinic ster_antibody Primary _IgG_serum Care & [facility] Reagin_Ab_Un unknown negative unknown _5291-0 unk nown unknown Clinic its_volume_in Primary _Serum_by_VDR Care & L [facility] hepatitis_B_ unknown negative unknown _5195-3 unk nown unknown Clinic surface_antig Primary en Care & [facility] Hematocrit_V unknown 36.1 unknown % _4544-3 unkno wn unknown Clinic olume_Fractio Primary n_of_Blood_by Care & _Automated_co Ancillary unt [facility] mean_corpusc unknown 87.8 unknown fL _315 unknow n unknown Clinic ular_volume_R Primary BC [facility] & [facility] rapid_plasma unknown negative unknown _308 unkn own unknown Clinic _reagin_antib Primary ody_serum Care & [facility] eosinophil_c unknown 0.1 10 unknown _285 unknow n unknown Clinic ount_blood 3/UL [facility] mean_platele unknown 9.9 unknown fL _2784 unknow n unknown Clinic t_volume [facility] varicella_zo unknown positive unknown _2470 unkn own unknown Clinic ster_antibody Primary _IgG_serum Care & [facility] basophil_cou unknown 0.1 10 unknown _2427 unknow n unknown Clinic nt_blood 3/UL [facility] monocyte_cou unknown 0.4 10 unknown _2422 unknow n unknown Clinic nt_blood 3/UL [facility] lymphocyte_c unknown 3.1 10 unknown _2420 unknow n unknown Clinic ount_blood 3/UL [facility] neutrophil_c unknown 6.2 10 unknown _2418 unknow n unknown Clinic ount_blood 3/UL [facility] mean_corpusc unknown 35.2 unknown g/dL _17029 unknow n unknown Clinic ular_hemoglob Primary in_concentrat Care & ion_rbc [facility] Hepatitis_C_ unknown 0.00 unknown _143985 unkno wn unknown Clinic Antibody_Sign Primary al_to_Cut-Off Care & [facility] mean_corpusc unknown 30.9 unknown pg _1031 unknow n unknown Clinic ular_hemoglob Primary in_RBC Care [facility] red_blood_ce unknown 11.5 unknown % _1030 unknow n unknown Clinic ll_distributi Primary on_width Care & [facility] T unknown 9.9 X10 unknown WBC unknown un known Clinic 3/UL [facility] T unknown 0.00 unknown SIGNAL_ unknown un known Clinic CUT-OFF [facility] T unknown 11.5 unknown % RDW unknown unk nown Clinic [facility] T unknown 4.11 10 unknown RBC unknown un known Clinic 6/UL [facility] T unknown 214 10 unknown PLT unknown unk nown Clinic 3/UL [facility] NEUTROPHILS_ unknown 6.2 10 unknown NE_ unknow n unknown Clinic AUTO_ 3/UL [facility] T unknown 6.2 10 unknown NEUT_AU unknown un known Clinic 3/UL TO_ [facility] T unknown 9.9 unknown fL MPV unknown unk nown Clinic [facility] MONOCYTES_AU unknown 0.4 10 unknown MO_ unknow n unknown Clinic TO_ 3/UL [facility] T unknown 0.4 10 unknown MONO_AU unknown un known Clinic 3/UL TO_ [facility] T unknown 87.8 unknown fL [facility] T unknown 35.2 unknown g/dL MCHC unknown unk [facility] T unknown 30.9 unknown pg MCH unknown unk [facility] LYMPHOCYTES_ unknown 3.1 10 unknown LY_ unknow n unknown Clinic AUTO_ 3/UL [facility] T unknown 3.1 10 unknown LYMPH_A unknown un known Clinic 3/UL UTO_ [facility] T unknown 12.7 unknown g/dL [facility] T unknown 36.1 unknown % HCT unknown [facility] EOSINOPHILS_ unknown 0.1 10 unknown EO_ unknow n unknown Clinic AUTO_ 3/UL [facility] T unknown 0.1 10 unknown EOS_AUT unknown un known Clinic 3/UL O_ [facility] BASOPHILS_AU unknown 0.1 10 unknown BA_ unknow n unknown Clinic TO_ 3/UL [facility] T unknown 0.1 10 unknown BASO_AU unknown un known Clinic 3/UL TO_ [facility] SIGNAL_TO_CU unknown 0.00 unknown qSIGNAL unkno wn unknown Clinic T-OFF [facility] hepatitis_B_ unknown negative unknown _79 unkn own unknown Clinic surface_antig Primary en Care & [facility] Erythrocytes unknown 4.11 10 unknown _789-8 unkno wn unknown Clinic _volume_in_Bl 6/UL Primary ood_by_Automa Care & ted_count [facility] Erythrocyte_ unknown 11.5 unknown % _788-0 unknow n unknown Clinic distribution_ Primary width_Ratio_b Care & y_Automated_c Ancillary ount [facility] MCV_Entitic_ unknown 87.8 unknown fL _787-2 unknow n unknown Clinic volume_by_Aut Primary omated_count Care & [facility] MCH_Entitic_ unknown 30.9 unknown pg _785-6 unknow n unknown Clinic mass_by_Autom Primary ated_count Care & [facility] Platelets_vo unknown 214 10 unknown _777-3 unknow n unknown Clinic lume_in_Blood 3/UL Primary _by_Automated Care & _count [facility] Platelet_mea unknown 9.9 unknown fL _776-5 unknow n unknown Clinic n_volume_Enti Primary tic_volume_in Care & _Blood_by_Ree Ancillary [facility] neutrophil_c unknown 6.2 10 unknown _752-6 unknow n unknown Clinic ount_blood 3/UL [facility] monocyte_cou unknown 0.4 10 unknown _743-5 unknow n unknown Clinic nt_blood 3/UL [facility] lymphocyte_c unknown 3.1 10 unknown _732-8 unknow n unknown Clinic ount_blood 3/UL [facility] Hemoglobin_M unknown 12.7 unknown g/dL _718-7 unknow n unknown Clinic ass_volume_in Primary _Blood Care & [facility] eosinophil_c unknown 0.1 10 unknown _712-0 unknow n unknown Clinic ount_blood 3/UL [facility] Basophils_vo unknown 0.1 10 unknown _705-4 unknow n unknown Clinic lume_in_Blood 3/UL Primary _by_Manual_co Care & unt [facility] leukocyte_co unknown 9.9 X10 unknown _68 unkno wn unknown Clinic unt_blood 3/UL [facility] erythrocyte_ unknown 4.11 10 unknown _67 unkno wn unknown Clinic RBC_count 6/UL [facility] Leukocytes_v unknown 9.9 X10 unknown _6690-2 unkn own unknown Clinic olume_in_Bloo 3/UL Primary d_by_Automate Care & d_count [facility] platelet_cou unknown 214 10 unknown _66 unknow n unknown Clinic nt 3/UL [facility] hemoglobin_b unknown 12.7 unknown g/dL _65 unknow n unknown Clinic lood [facility] hematocrit_b unknown 36.1 unknown % _64 unknow n unknown Clinic lood [facility] varicella_zo unknown positive unknown _5403-1 unk nown unknown Clinic ster_antibody Primary _IgG_serum Care & [facility] Reagin_Ab_Un unknown negative unknown _5291-0 unk nown unknown Clinic its_volume_in Primary _Serum_by_VDR Care & L [facility] hepatitis_B_ unknown negative unknown _5195-3 unk nown unknown Clinic surface_antig Primary en Care & [facility] Hematocrit_V unknown 36.1 unknown % _4544-3 unkno wn unknown Clinic olume_Fractio Primary n_of_Blood_by Care & _Automated_co Ancillary unt [facility] mean_corpusc unknown 87.8 unknown fL _315 unknow n unknown Clinic ular_volume_R Primary BC [facility] & [facility] rapid_plasma unknown negative unknown _308 unkn own unknown Clinic _reagin_antib Primary ody_serum Care & [facility] eosinophil_c unknown 0.1 10 unknown _285 unknow n unknown Clinic ount_blood 3/UL Primary [facility] mean_platele unknown 9.9 unknown fL _2784 unknow n unknown Clinic t_volume [facility] varicella_zo unknown positive unknown _2470 unkn own unknown Clinic ster_antibody Primary _IgG_serum [facility] basophil_cou unknown 0.1 10 unknown _2427 unknow n unknown Clinic nt_blood 3/UL [facility] monocyte_cou unknown 0.4 10 unknown _2422 unknow n unknown Clinic nt_blood 3/UL [facility] lymphocyte_c unknown 3.1 10 unknown _2420 unknow n unknown Clinic ount_blood 3/UL [facility] neutrophil_c unknown 6.2 10 unknown _2418 unknow n unknown Clinic ount_blood 3/UL [facility] mean_corpusc unknown 35.2 unknown g/dL _17029 unknow n unknown Clinic ular_hemoglob Primary in_concentrat Care & ion_rbc [facility] Hepatitis_C_ unknown 0.00 unknown _[id number] unkno wn unknown Clinic Antibody_Sign Primary al_to_Cut-Off [facility] mean_corpusc unknown 30.9 unknown pg _1031 unknow n unknown Clinic ular_hemoglob Primary in_RBC [facility] red_blood_ce unknown 11.5 unknown % _1030 unknow n unknown Clinic ll_distributi Primary on_width [facility] T unknown 9.9 X10 unknown WBC unknown un known Clinic 3/UL [facility] T unknown 0.00 unknown SIGNAL_ unknown un known Clinic CUT-OFF [facility] T unknown 11.5 unknown % RDW unknown unk [facility] T unknown 4.11 10 unknown RBC unknown un known Clinic 6/UL [facility] T unknown 214 10 unknown PLT unknown unk [facility] Clinic 3/UL [facility] NEUTROPHILS_ unknown 6.2 10 unknown NE_ unknow n unknown Clinic AUTO_ 3/UL [facility] T unknown 6.2 10 unknown NEUT_AU unknown un known Clinic 3/UL TO_ [facility] T unknown 9.9 unknown fL MPV unknown unk nown Clinic [facility] MONOCYTES_AU unknown 0.4 10 unknown MO_ unknow n unknown Clinic TO_ 3/UL [facility] T unknown 0.4 10 unknown MONO_AU unknown un known Clinic 3/UL TO_ [facility] T unknown 87.8 unknown fL MCV unknown unk nown Clinic [facility] T unknown 35.2 unknown g/dL MCHC unknown unk [facility] T unknown 30.9 unknown pg MCH unknown unk [facility] LYMPHOCYTES_ unknown 3.1 10 unknown LY_ unknow n unknown Clinic AUTO_ 3/UL [facility] T unknown 3.1 10 unknown LYMPH_A unknown un known Clinic 3/UL UTO_ [facility] T unknown 12.7 unknown g/dL HGB unknown unk nown Clinic [facility] T unknown 36.1 unknown % HCT unknown unk nown Clinic [facility] EOSINOPHILS_ unknown 0.1 10 unknown EO_ unknow n unknown Clinic AUTO_ 3/UL [facility] T unknown 0.1 10 unknown EOS_AUT unknown un known Clinic 3/UL O_ [facility] BASOPHILS_AU unknown 0.1 10 unknown BA_ unknow n unknown Clinic TO_ 3/UL [facility] T unknown 0.1 10 unknown BASO_AU unknown un known Clinic 3/UL TO_ [facility] SIGNAL_TO_CU unknown 0.00 unknown qSIGNAL unkno wn unknown Clinic T-OFF [facility] hepatitis_B_ unknown negative unknown _79 unkn own unknown Clinic surface_antig Primary en [facility] Erythrocytes unknown 4.11 10 unknown _789-8 unkno wn unknown Clinic _volume_in_Bl 6/UL Primary ood_by_Automa Care & ted_count [facility] Erythrocyte_ unknown 11.5 unknown % _788-0 unknow n unknown Clinic distribution_ Primary width_Ratio_b Care & y_Automated_c Ancillary ount [facility] MCV_Entitic_ unknown 87.8 unknown fL _787-2 unknow n unknown Clinic volume_by_Aut Primary omated_count [facility] MCH_Entitic_ unknown 30.9 unknown pg _785-6 unknow n unknown Clinic mass_by_Autom Primary ated_count [facility] Platelets_vo unknown 214 10 unknown _777-3 unknow n unknown Clinic lume_in_Blood 3/UL Primary _by_Automated Care & _count [facility] Platelet_mea unknown 9.9 unknown fL _776-5 unknow n unknown Clinic n_volume_Enti Primary tic_volume_in Care & _Blood_by_Ree Anc[facility] s-Brina [facility] neutrophil_c unknown 6.2 10 unknown _752-6 unknow n unknown Clinic ount_blood 3/UL [facility] monocyte_cou unknown 0.4 10 unknown _743-5 unknow n unknown Clinic nt_blood 3/UL [facility] lymphocyte_c unknown 3.1 10 unknown _732-8 unknow n unknown Clinic ount_blood 3/UL [facility] Hemoglobin_M unknown 12.7 unknown g/dL _718-7 unknow n unknown Clinic ass_volume_in Primary _Blood [facility] eosinophil_c unknown 0.1 10 unknown _712-0 unknow n unknown Clinic ount_blood 3/UL [facility] Basophils_vo unknown 0.1 10 unknown _705-4 unknow n unknown Clinic lume_in_Blood 3/UL Primary _by_Manual_co Care & unt [facility] leukocyte_co unknown 9.9 X10 unknown _68 unkno wn unknown Clinic unt_blood 3/UL [facility] erythrocyte_ unknown 4.11 10 unknown _67 unkno wn unknown Clinic RBC_count 6/UL [facility] Leukocytes_v unknown 9.9 X10 unknown _6690-2 unkn own unknown Clinic olume_in_Bloo 3/UL Primary d_by_Automate Care & d_count [facility] platelet_cou unknown 214 10 unknown _66 unknow n unknown Clinic nt 3/UL [facility] hemoglobin_b unknown 12.7 unknown g/dL _65 unknow n unknown Clinic lood [facility] hematocrit_b unknown 36.1 unknown % _64 unknow n unknown Clinic lood [facility] varicella_zo unknown positive unknown _5403-1 unk nown unknown Clinic ster_antibody Primary _IgG_serum [facility] Reagin_Ab_Un unknown negative unknown _5291-0 unk nown unknown Clinic its_volume_in Primary _Serum_by_VDR Care [facility] L [facility] hepatitis_B_ unknown negative unknown _5195-3 unk nown unknown Clinic surface_antig Primary en [facility] Hematocrit_V unknown 36.1 unknown % _4544-3 unkno wn unknown Clinic olume_Fractio Primary n_of_Blood_by Care & _Automated_co Ancillary unt [facility] mean_corpusc unknown 87.8 unknown fL _315 unknow n unknown Clinic ular_volume_R Primary BC [facility] rapid_plasma unknown negative unknown _308 unkn own unknown Clinic _reagin_antib Primary ody_serum [facility] eosinophil_c unknown 0.1 10 unknown _285 unknow n unknown Clinic ount_blood 3/UL [facility] mean_platele unknown 9.9 unknown fL _2784 unknow n unknown Clinic t_volume [facility] varicella_zo unknown positive unknown _2470 unkn own unknown Clinic ster_antibody Primary _IgG_serum [facility] basophil_cou unknown 0.1 10 unknown _2427 unknow n unknown Clinic nt_blood 3/UL [facility] monocyte_cou unknown 0.4 10 unknown _2422 unknow n unknown Clinic nt_blood 3/UL [facility] lymphocyte_c unknown 3.1 10 unknown _2420 unknow n unknown Clinic ount_blood 3/UL [facility] neutrophil_c unknown 6.2 10 unknown _2418 unknow n unknown Clinic ount_blood 3/UL [facility] mean_corpusc unknown 35.2 unknown g/dL _17029 unknow n unknown Clinic ular_hemoglob Primary in_concentrat Care & ion_rbc [facility] Hepatitis_C_ unknown 0.00 unknown _[id number] unkno wn unknown Clinic Antibody_Sign Primary al_to_Cut-Off [facility] mean_corpusc unknown 30.9 unknown pg _1031 unknow n unknown Clinic ular_hemoglob Primary in_RBC [facility] red_blood_ce unknown 11.5 unknown % _1030 unknow n unknown Clinic ll_distributi Primary on_width [facility] T unknown 9.9 X10 unknown WBC unknown un known Clinic 3/UL [facility] T unknown 0.00 unknown SIGNAL_ unknown un known Clinic CUT-OFF [facility] T unknown 11.5 unknown % [facility] T unknown 4.11 10 unknown RBC unknown un known Clinic 6/UL [facility] T unknown 214 10 [facility] 3[facility] NEUTROPHILS_ unknown 6.2 10 unknown NE_ unknow n unknown Clinic AUTO_ 3/UL [facility] T unknown 6.2 10 unknown NEUT_AU unknown un known Clinic 3/UL TO_ [facility] T unknown 9.9 unknown fL MPV unknown [facility] MONOCYTES_AU unknown 0.4 10 unknown MO_ unknow n unknown Clinic TO_ 3/UL [facility] T unknown 0.4 10 unknown MONO_AU unknown un known Clinic 3/UL TO_ [facility] T unknown 87.8 unknown fL MCV unknown [facility] T unknown 35.2 unknown g/dL MCHC unknown unk [facility] T unknown 30.9 unknown pg MCH unknown [facility] LYMPHOCYTES_ unknown 3.1 10 unknown LY_ unknow n unknown Clinic AUTO_ 3/UL [facility] T unknown 3.1 10 unknown LYMPH_A unknown un known Clinic 3/UL UTO_ [facility] T unknown 12.7 unknown g/dL HGB unknown unk [facility] T unknown 36.1 unknown % HCT unknown unk nown Clinic [facility] EOSINOPHILS_ unknown 0.1 10 unknown EO_ unknow n unknown Clinic AUTO_ 3/UL [facility] T unknown 0.1 10 unknown EOS_AUT unknown un known Clinic 3/UL O_ [facility] BASOPHILS_AU unknown 0.1 10 unknown BA_ unknow n unknown Clinic TO_ 3/UL [facility] T unknown 0.1 10 unknown BASO_AU unknown un known Clinic 3/UL TO_ [facility] All SIGNAL_TO_CU unknown 0.00 unknown qSIGNAL unknow n unknown T-OFF All Erythrocytes unknown 4.11 10 unknown _789-8 unknow n unknown _volume_in_Bl 6/UL ood_by_Automa ted_count All Erythrocyte_ unknown 11.5 unknown % _788-0 unknown unknown distribution_ width_Ratio_b y_Automated_c ount All MCV_Entitic_ unknown 87.8 unknown fL _787-2 unknown unknown volume_by_Aut omated_count All MCH_Entitic_ unknown 30.9 unknown pg _785-6 unknown unknown mass_by_Autom ated_count All Platelets_vo unknown 214 10 unknown _777-3 unknown unknown lume_in_Blood 3/UL _by_Automated _count All Platelet_mea unknown 9.9 unknown fL _776-5 unknown unknown n_volume_Enti tic_volume_in _Blood_by_Ree s-Brina All neutrophil_c unknown 6.2 10 unknown _752-6 unknown unknown ount_blood 3/UL All monocyte_cou unknown 0.4 10 unknown _743-5 unknown unknown nt_blood 3/UL All lymphocyte_c unknown 3.1 10 unknown _732-8 unknown unknown ount_blood 3/UL All Hemoglobin_M unknown 12.7 unknown g/dL _718-7 unknown unknown ass_volume_in _Blood All eosinophil_c unknown 0.1 10 unknown _712-0 unknown unknown ount_blood 3/UL All Basophils_vo unknown 0.1 10 unknown _705-4 unknown unknown lume_in_Blood 3/UL _by_Manual_co unt All leukocyte_co unknown 9.9 X10 unknown _68 unknow n unknown unt_blood 3/UL All erythrocyte_ unknown 4.11 10 unknown _67 unknow n unknown RBC_count 6/UL All Leukocytes_v unknown 9.9 X10 unknown _6690-2 unkno wn unknown olume_in_Bloo 3/UL d_by_Automate d_count All platelet_cou unknown 214 10 unknown _66 unknown unknown nt 3/UL All hemoglobin_b unknown 12.7 unknown g/dL _65 unknown unknown lood All hematocrit_b unknown 36.1 unknown % _64 unknown unknown lood All Hematocrit_V unknown 36.1 unknown % _4544-3 unknow n unknown olume_Fractio n_of_Blood_by _Automated_co unt All mean_corpusc unknown 87.8 unknown fL _315 unknown unknown ular_volume_R BC All eosinophil_c unknown 0.1 10 unknown _285 unknown unknown ount_blood 3/UL All mean_platele unknown 9.9 unknown fL _2784 unknown unknown t_volume All basophil_cou unknown 0.1 10 unknown _2427 unknown unknown nt_blood 3/UL All monocyte_cou unknown 0.4 10 unknown _2422 unknown unknown nt_blood 3/UL All lymphocyte_c unknown 3.1 10 unknown _2420 unknown unknown ount_blood 3/UL All neutrophil_c unknown 6.2 10 unknown _2418 unknown unknown ount_blood 3/UL All mean_corpusc unknown 35.2 unknown g/dL _17029 unknown unknown ular_hemoglob in_concentrat ion_rbc All Hepatitis_C_ unknown 0.00 unknown _[id number] unknow n unknown Antibody_Sign al_to_Cut-Off All mean_corpusc unknown 30.9 unknown pg _1031 unknown unknown ular_hemoglob in_RBC All red_blood_ce unknown 11.5 unknown % _1030 unknown unknown ll_distributi on_width All T unknown 9.9 X10 unknown WBC unknown unk nown 3/UL All T unknown 0.00 unknown SIGNAL_ unknown unk nown CUT-OFF All T unknown 11.5 unknown % RDW unknown unkn own All T unknown 4.11 10 unknown RBC unknown unk nown 6/UL All T unknown 214 10 unknown PLT unknown unkn own 3/UL All NEUTROPHILS_ unknown 6.2 10 unknown NE_ unknown unknown AUTO_ 3/UL All T unknown 6.2 10 unknown NEUT_AU unknown unk nown 3/UL TO_ All T unknown 9.9 unknown fL MPV unknown unkn own All MONOCYTES_AU unknown 0.4 10 unknown MO_ unknown unknown TO_ 3/UL All T unknown 0.4 10 unknown MONO_AU unknown unk nown 3/UL TO_ All T unknown 87.8 unknown fL MCV unknown unkn own All T unknown 35.2 unknown g/dL MCHC unknown unkn own All T unknown 30.9 unknown pg MCH unknown unkn own All LYMPHOCYTES_ unknown 3.1 10 unknown LY_ unknown unknown AUTO_ 3/UL All T unknown 3.1 10 unknown LYMPH_A unknown unk nown 3/UL UTO_ All T unknown 12.7 unknown g/dL HGB unknown unkn own All T unknown 36.1 unknown % HCT unknown unkn own All EOSINOPHILS_ unknown 0.1 10 unknown EO_ unknown unknown AUTO_ 3/UL All T unknown 0.1 10 unknown EOS_AUT unknown unk nown 3/UL O_ All BASOPHILS_AU unknown 0.1 10 unknown BA_ unknown unknown TO_ 3/UL All T unknown 0.1 10 unknown BASO_AU unknown unk nown 3/UL TO_ All SIGNAL_TO_CU unknown 0.00 unknown qSIGNAL unknow n unknown T-OFF All Erythrocytes unknown 4.11 10 unknown _789-8 unknow n unknown _volume_in_Bl 6/UL ood_by_Automa ted_count All Erythrocyte_ unknown 11.5 unknown % _788-0 unknown unknown distribution_ width_Ratio_b y_Automated_c ount All MCV_Entitic_ unknown 87.8 unknown fL _787-2 unknown unknown volume_by_Aut omated_count All MCH_Entitic_ unknown 30.9 unknown pg _785-6 unknown unknown mass_by_Autom ated_count All Platelets_vo unknown 214 10 unknown _777-3 unknown unknown lume_in_Blood 3/UL _by_Automated _count All Platelet_mea unknown 9.9 unknown fL _776-5 unknown unknown n_volume_Enti tic_volume_in _Blood_by_Ree s-Brina All neutrophil_c unknown 6.2 10 unknown _752-6 unknown unknown ount_blood 3/UL All monocyte_cou unknown 0.4 10 unknown _743-5 unknown unknown nt_blood 3/UL All lymphocyte_c unknown 3.1 10 unknown _732-8 unknown unknown ount_blood 3/UL All Hemoglobin_M unknown 12.7 unknown g/dL _718-7 unknown unknown ass_volume_in _Blood All eosinophil_c unknown 0.1 10 unknown _712-0 unknown unknown ount_blood 3/UL All Basophils_vo unknown 0.1 10 unknown _705-4 unknown unknown lume_in_Blood 3/UL _by_Manual_co unt All leukocyte_co unknown 9.9 X10 unknown _68 unknow n unknown unt_blood 3/UL All erythrocyte_ unknown 4.11 10 unknown _67 unknow n unknown RBC_count 6/UL All Leukocytes_v unknown 9.9 X10 unknown _6690-2 unkno wn unknown olume_in_Bloo 3/UL d_by_Automate d_count All platelet_cou unknown 214 10 unknown _66 unknown unknown nt 3/UL All hemoglobin_b unknown 12.7 unknown g/dL _65 unknown unknown lood All hematocrit_b unknown 36.1 unknown % _64 unknown unknown lood All Hematocrit_V unknown 36.1 unknown % _4544-3 unknow n unknown olume_Fractio n_of_Blood_by _Automated_co unt All mean_corpusc unknown 87.8 unknown fL _315 unknown unknown ular_volume_R BC All eosinophil_c unknown 0.1 10 unknown _285 unknown unknown ount_blood 3/UL All mean_platele unknown 9.9 unknown fL _2784 unknown unknown t_volume All basophil_cou unknown 0.1 10 unknown _2427 unknown unknown nt_blood 3/UL All monocyte_cou unknown 0.4 10 unknown _2422 unknown unknown nt_blood 3/UL All lymphocyte_c unknown 3.1 10 unknown _2420 unknown unknown ount_blood 3/UL All neutrophil_c unknown 6.2 10 unknown _2418 unknown unknown ount_blood 3/UL All mean_corpusc unknown 35.2 unknown g/dL _17029 unknown unknown ular_hemoglob in_concentrat ion_rbc All Hepatitis_C_ unknown 0.00 unknown _[id number] unknow n unknown Antibody_Sign al_to_Cut-Off All mean_corpusc unknown 30.9 unknown pg _1031 unknown unknown ular_hemoglob in_RBC All red_blood_ce unknown 11.5 unknown % _1030 unknown unknown ll_distributi on_width All T unknown 9.9 X10 unknown WBC unknown unk nown 3/UL All T unknown 0.00 unknown SIGNAL_ unknown unk nown CUT-OFF All T unknown 11.5 unknown % RDW unknown unkn own All T unknown 4.11 10 unknown RBC unknown unk nown 6/UL All T unknown 214 10 unknown PLT unknown unkn own 3/UL All NEUTROPHILS_ unknown 6.2 10 unknown NE_ unknown unknown AUTO_ 3/UL All T unknown 6.2 10 unknown NEUT_AU unknown unk nown 3/UL TO_ All T unknown 9.9 unknown fL MPV unknown unkn own All MONOCYTES_AU unknown 0.4 10 unknown MO_ unknown unknown TO_ 3/UL All T unknown 0.4 10 unknown MONO_AU unknown unk nown 3/UL TO_ All T unknown 87.8 unknown fL MCV unknown unkn own All T unknown 35.2 unknown g/dL MCHC unknown unkn own All T unknown 30.9 unknown pg MCH unknown unkn own All LYMPHOCYTES_ unknown 3.1 10 unknown LY_ unknown unknown AUTO_ 3/UL All T unknown 3.1 10 unknown LYMPH_A unknown unk nown 3/UL UTO_ All T unknown 12.7 unknown g/dL HGB unknown unkn own All T unknown 36.1 unknown % HCT unknown unkn own All EOSINOPHILS_ unknown 0.1 10 unknown EO_ unknown unknown AUTO_ 3/UL All T unknown 0.1 10 unknown EOS_AUT unknown unk nown 3/UL O_ All BASOPHILS_AU unknown 0.1 10 unknown BA_ unknown unknown TO_ 3/UL All T unknown 0.1 10 unknown BASO_AU unknown unk nown 3/UL TO_ [facility] culture_stat unknown No unknown _14815 unknow n unknown Clinic us [facility] [place] [facility] urinalysis_r unknown Clean unknown _47 unknow n unknown Clinic outine Catch [facility] [place] [facility] Herpes_Simpl unknown no unknown _8708 unknow n unknown Clinic ex_Virus_Geni Primary misty [facility] human_chorio unknown Positive unknown _2578 unkn own unknown Clinic nic_gonadotro Primary pin_urine_qua Care & litative_urin Ancillary e_pregnancy_t Services est_ [facility] Choriogonado unknown Positive unknown _2105-12 unk nown unknown Clinic tropin_pregna Primary ncy_test_Pres Care & ence_in_Urine Ancillary [facility] Urine_HCG_QC unknown Yes unknown _[id number] unkno wn unknown Clinic _Result_CLIA_ Primary Waived_ [facility] Urine_HCG_Ex unknown unknown _114941 un known unknown Clinic p_Date_CLIA_W 2 Primary aived_ [facility] Urine_HCG_Lo unknown [id number] unknown _[id number] unkno wn unknown Clinic t_Number_CLIA Primary _Waived_ [facility] culture_stat unknown No unknown _51015 unknow n unknown Clinic us [facility] urinalysis_r unknown Clean unknown _47 unknow n unknown Clinic outine Catch [facility] Herpes_Simpl unknown no unknown _4258 unknow n unknown Clinic ex_Virus_Geni Primary misty [facility] human_chorio unknown Positive unknown _2578 unkn own unknown Clinic nic_gonadotro Primary pin_urine_qua Care & litative_urin Ancillary e_pregnancy_t Services est_ [facility] Choriogonado unknown Positive unknown _2105-12 unk nown unknown Clinic tropin_pregna Primary ncy_test_Pres Care & ence_in_Urine Ancillary [facility] Urine_HCG_QC unknown Yes unknown _[id number] unkno wn unknown Clinic _Result_CLIA_ Primary Waived_ [facility] Urine_HCG_Ex unknown unknown _114941 un known unknown Clinic p_Date_CLIA_W 2 Primary aived_ [facility] Urine_HCG_Lo unknown [id number] unknown _114940 unkno wn unknown Clinic t_Number_CLIA Primary _Waived_ [facility] culture_stat unknown No unknown _51015 unknow n unknown Clinic us [facility] urinalysis_r unknown Clean unknown _47 unknow n unknown Clinic outine Catch [facility] Herpes_Simpl unknown no unknown _4258 unknow n unknown Clinic ex_Virus_Geni Primary misty [facility] human_chorio unknown Positive unknown _2578 unkn own unknown Clinic nic_gonadotro Primary pin_urine_qua Care & litative_urin Ancillary e_pregnancy_t Services est_ [facility] Choriogonado unknown Positive unknown _2105- unk nown unknown Clinic tropin_pregna Primary ncy_test_Pres Care & ence_in_Urine Ancillary Services [facility] Urine_HCG_QC unknown Yes unknown _[id number] unkno wn unknown Clinic _Result_CLIA_ Primary Waived_ [facility] Urine_HCG_Ex unknown unknown _114941 un known unknown Clinic p_Date_CLIA_W 2 Primary aived_ [facility] Urine_HCG_Lo unknown [id number] unknown _114940 unkno wn unknown Clinic t_Number_CLIA Primary _Waived_ [facility] culture_stat unknown No unknown _51015 unknown unknown us All urinalysis_r unknown Clean unknown _47 unknown unknown outine Catch All Herpes_Simpl unknown no unknown _4258 unknown unknown ex_Virus_Geni misty All human_chorio unknown Positive unknown _2578 unkno wn unknown nic_gonadotro pin_urine_qua litative_urin e_pregnancy_t est_ All Choriogonado unknown Positive unknown _2105- unkn own unknown tropin_pregna ncy_test_Pres ence_in_Urine All Urine_HCG_QC unknown Yes unknown _114942 unknow n unknown _Result_CLIA_ Waived_ All Urine_HCG_Ex unknown unknown _114941 unk nown unknown p_Date_CLIA_W 2 aived_ All Urine_HCG_Lo unknown [id number] unknown _114940 unknow n unknown t_Number_CLIA _Waived_ All culture_stat unknown No unknown _51015 unknown unknown us All urinalysis_r unknown Clean unknown _47 unknown unknown outine Catch All Herpes_Simpl unknown no unknown _4258 unknown unknown ex_Virus_Geni misty All human_chorio unknown Positive unknown _2578 unkno wn unknown nic_gonadotro pin_urine_qua litative_urin e_pregnancy_t est_ All Choriogonado unknown Positive unknown _2105-12 unkn own unknown tropin_pregna ncy_test_Pres ence_in_Urine All Urine_HCG_QC unknown Yes unknown _[id number] unknow n unknown _Result_CLIA_ Waived_ All Urine_HCG_Ex unknown unknown _[id number] unk nown unknown p_Date_CLIA_W 2 aived_ All Urine_HCG_Lo unknown [id number] unknown _[id number] unknow n unknown t_Number_CLIA _Waived_ All culture_stat unknown No unknown _51015 unknown unknown us All urinalysis_r unknown Clean unknown _47 unknown unknown outine Catch All Herpes_Simpl unknown no unknown _4258 unknown unknown ex_Virus_Geni misty All human_chorio unknown Positive unknown _2578 unkno wn unknown nic_gonadotro pin_urine_qua litative_urin e_pregnancy_t est_ All Choriogonado unknown Positive unknown _2105-12 unkn own unknown tropin_pregna ncy_test_Pres ence_in_Urine All Urine_HCG_QC unknown Yes unknown _[id number] unknow n unknown _Result_CLIA_ Waived_ All Urine_HCG_Ex unknown unknown _[id number] unk nown unknown p_Date_CLIA_W 2 aived_ All Urine_HCG_Lo unknown [id number] unknown _[id number] unknow n unknown t_Number_CLIA _Waived_ Vital Signs date measurement value source [id number] weight_standard 177.2 lb [id number] weight_metric 80.38 kg 20210228 BMI 33.60 kg/m2 20210228 weight_standard 177.2 lb 20210228 weight_metric 80.38 kg [id number] height_standard 61 in [id number] height_metric 154.94 cm 20210228 BMI 33.60 kg/m2 20210228 weight_standard 177.2 lb 20210228 weight_metric 80.38 kg [id number] height_standard 61 in [id number] height_metric 154.94 cm 20210228 BMI 33.60 kg/m2 20210228 weight_standard 177.2 lb 20210228 weight_metric 80.38 kg [id number] height_standard 61 in [id number] height_metric 154.94 cm 20210228 BMI 33.60 kg/m2 20210228 weight_standard 177.2 lb 20210228 weight_metric 80.38 kg 20210228 height_standard 61 in 20210228 height_metric 154.94 cm 20210228 BMI 33.60 kg/m2 20210228 weight_standard 177.2 lb 20210228 weight_metric 80.38 kg 20210228 height_standard 61 in 20210228 height_metric 154.94 cm 20210228 BMI 33.60 kg/m2 20210312 height_standard 61 in [id number] height_metric 154.94 cm 20210312 BP_systolic 120 mm[Hg] 20210312 BP_diastolic 60 mm[Hg] 20210312 height_standard 61 in [id number] height_metric 154.94 cm 20210312 BP_systolic 120 mm[Hg] 20210312 BP_diastolic 60 mm[Hg]
[2021-03-13] MEDS ORDERED: GABAPENTIN 400 MG CAPSULE ONE (12:29)
[2021-03-13] MEDS ORDERED: DOXYCYCLINE 100 MG TABLET PO ONE (12:29)
[2021-03-13] MEDS ORDERED: ACETAMINOPHEN 500 MG TABLET PO ONE (12:30)
[2021-03-13] MEDS ORDERED: CELECOXIB 100 MG CAPSULE PO ONE (12:30)
[2021-03-13] MEDS ORDERED: LACTATED RINGERS 1,000 ML IV ONE ×2 (12:38→14:41)
[2021-03-13] MEDS ORDERED: MIDAZOLAM 2 MG/2 ML VIAL ONE (13:08)
[2021-03-13] MEDS ORDERED: LIDOCAINE-MPF 2% 5 ML VIAL ONE (13:09)
[2021-03-13] MEDS ORDERED: PROPOFOL 200 MG/20 ML VIAL IVP ONE ×3 (13:09→14:19)
[2021-03-13] MEDS ORDERED: SODIUM CHLORIDE 0.9% 10 ML VIAL IVP ONE ×2 (13:11→14:15)
[2021-03-13] MEDS ORDERED: BUPIVACAINE 0.5%-EPI 1:200000 PF 30 ML VIAL ONE (13:21)
[2021-03-13] MEDS ORDERED: ONDANSETRON 4 MG/2 ML VIAL ONE (13:22)
[2021-03-13] MEDS ORDERED: SILVER NITRATE APPLICATOR TOP ONE (13:23)
--- NOTE | 2021-03-13 13:25 | ANESTHESIA ---
Pre-Anesthesia VS, & Labs - Diagnosis missed AB - Procedure Suction D&C Vital Signs: Temp Pulse Resp BP Pulse Ox 36.7 C 84 14 107/69 100 03/13/21 12:16 03/13/21 12:16 03/13/21 12:16 03/13/21 12:16 03/13/21 12:16 Height: 5 ft 1 in Weight (kg): 80 kg Body Mass Index: 33.3 BMI Classification: Obese - NPO >8 hours - Is Patient ?: Yes (AB) - Lab Results Current Lab Results: Laboratory Tests 03/13/21 12:55: POC Whole Bld Glucose 78 Lab results reviewed: Yes Home Medications and Allergies Home Medications: Ambulatory Orders Ibuprofen 200 mg PO ONCE 03/13/21 Ibuprofen 200 mg PO ONCE 03/13/21 Allergies/Adverse Reactions: Allergies Allergy/AdvReac Type Severity Reaction Status Date / Time No Known Drug Allergies Allergy Verified 03/13/21 08:30 Anes History & Medical History - Anesthetic History Anesthesia Complications: reports: No previous complications Family history of Anesthesia Complications: Denies Family history of Malignant Hyperthermia: Denies - Medical History Cardiovascular: reports: None Pulmonary: reports: None Gastrointestinal: reports: None Urinary: reports: None Musculoskeletal: reports: Scoliosis, Chronic back pain Endocrine/Autoimmune: reports: None Skin: reports: None - Surgical History Eyes Ears Nose Throat (EENT): reports: Myringotomy (tubes), Tonsil/Adenoidectomy, Other Exam General: Alert, Oriented x3, Cooperative Dental: WNL Mouth Openin Fingerbreadth Neck Mobility: Normal Mallampati classification: II Thyromental Distance: 4-6 cm Respiratory: Lungs clear, Normal breath sounds, No respiratory distress Cardiovascular: Regular rate Neurological: Normal speech Mental/Cognitive Status: Alert/Oriented X3, Normal for patient Plan Anesthesia Type: Total IV Consent for Procedure(s) Verified and Reviewed: Yes Code Status: Attempt Resuscitation ASA classification: 1-Healthy patient Is this case an emergency?: No
[2021-03-13] MEDS ORDERED: ONDANSETRON 4 MG/2 ML VIAL IVP PRN ×2 (13:26→15:01)
[2021-03-13] MEDS ORDERED: ePHEDrine 50 MG/ML VIAL IVP PRN (13:26)
[2021-03-13] MEDS ORDERED: HYDROmorphone 0.5 MG/0.5 ML SYRINGE IVP PRN (13:26)
[2021-03-13] MEDS ORDERED: MORPHINE 2 MG/ML CARPUJECT IVP PRN (13:26)
[2021-03-13] MEDS ORDERED: ATROPINE ABBOJECT 1 MG/10 ML SYRINGE IVP PRN (13:26)
[2021-03-13] MEDS ORDERED: NALOXONE 0.4 MG/ML VIAL IVP PRN (13:26)
[2021-03-13] MEDS ORDERED: fentaNYL 100 MCG/2 ML VIAL IVP PRN (13:26)
[2021-03-13] MEDS ORDERED: METOCLOPRAMIDE 10 MG/2 ML VIAL IVP PRN (13:26)
[2021-03-13] MEDS ORDERED: KETAMINE 500 MG/10 ML VIAL ONE (13:31)
--- NOTE | 2021-03-13 13:31 | HISTORY & PHYSICAL EXAMINATION ---
HPI - History of Present Illness HPI Comment/Other: HPI: pt presents today for miscarriage management ...................................................................Sultana Hooker LPN March 12, 2021 8:04 AM Janette presents today for miscarriage management. She has been cramping for approximately 1 week. She denies bleeding. She denies fever, body aches or chills. She states she wants to proceed with a D&C so she can be over it and move forward. She reports increased vaginal discharge with a foul odor. Reports discharge is yellow in color. Denies itching or burning. She states she is processing the loss and is sad but coping. She is unsure what her blood type is. Allergies: No Known Allergies Medications: PRE- FORMULA ORAL TABLET ( [id number]) Take one tablet by mouth once a day; Route: ORAL Problems: Vaginal discharge (ICD-623.5) (ORV77-V55.8) , missed (ICD-632) (QVL94-Z41.1) Encounter for other specified screening (HEJ33-M04.89) Chronic back pain (ICD-724.5) (WRY40-P35.9) Depression (ICD-311) (OXD05-E53.9) Dermatitis rash/non specific skin eruption (ICD-692.9) (VWR14-K95) Vital Signs: Patient Profile: 30 Years Old Female Height: 61 inches BP sittin / 60 Vitals Entered By: Sultana Hooker LPN (March 12, 2021 8:05 AM) Meds Reviewed: Done Allergies Reviewed: Done No known allergies: T Past Medical History: Depression 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 Cardiovascular: Denies chest pain, fast heart rate. Respiratory: Denies shortness of breath. Gastrointestinal: Denies nausea, vomiting, change in bowel habits, abdominal pain. Genitourinary: Complains of vaginal odor, discharge, abscence of periods. Denies itching, loss of urine, painful urination, blood in urine, painful periods, heavy bleeding, abdominal pain, pelvic pain. menstrual-like cramping Neurologic: Denies headaches. Psychiatric: Denies depression, anxiety. Physical Constitutional: alert, no acute distress, well hydrated, well developed, well nourished, appropriate dress. Skin: normal turgor, normal color, no rashes, no lesions, no unusual bruising. Head: atraumatic, normocephalic. Eyes: EOM intact. Ears: gross hearing intact. Cardiovascular: no edema. Respiratory: no respiratory distress. Spine: normal mobility, no deformities. Extremities: no deformities. Neurologic: normal, motor intact. Psych: affect and mood appropriate, normal interaction, good eye contact. Impression & Recommendations: Problem # 1: , missed (ICD-632) (SGG43-Z29.1) Hcg decreased. Initial ultrasound reveals non-viable measuring 8.6wks (should be 11wks by LMP). Reviewed managment options to include medical vs surgical management. Risks vs benefits discussed extensively today. Pt desires to proceed with D&C. Consent form signed. Clinic RN [email or web address] and pt scheduled 03/13/2021. Blood type, CBC and COVID swab ordered to be completed immediately after she leaves here today. Pt verbalized understanding and agrees to above plan. She denies further questions or concerns today. 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 yes HIV: negative (03/02/2021 1:34:57 PM) RPR: negative (03/02/2021 1:35:37 PM) /PSH - Past Medical History Cardiovascular: positive: None Respiratory: positive: None Endocrine/Autoimmune: positive: None GI: positive: None : positive: None HEENT: positive: Other Psych: positive: None Musculoskeletal: positive: Scoliosis, Chronic back pain Derm: positive: None MRSA Hx?: No - Past Surgical History HEENT: positive: Myringotomy (tubes), Tonsil/Adenoidectomy, Other Meds/Allgy - Home Medications Home Medications: Ambulatory Orders Medication Instructions Recorded Confirmed Ibuprofen 200 mg PO ONCE 03/13/21 03/13/21 - Allergies Allergies/Adverse Reactions: Allergies Allergy/AdvReac Type Severity Reaction Status Date / Time No Known Drug Allergies Allergy Verified 03/13/21 08:30 Exam - Vital Signs Vital Signs: Vital Signs x48h Temp Pulse Resp BP Pulse Ox 03/13/21 12:16 98.1 F 84 14 107/69 100 Results - Lab Results Other Lab Results: Lab Results x24hrs 03/13/21 Range/Units 12:55 POC Whole Bld Glucose 78 (70 - 100) mg/dL
[2021-03-13] MEDS ORDERED: LACTATED RINGERS 1,000 ML IV SCH (14:00)
[2021-03-13] MEDS ORDERED: BUPIVACAINE 0.5%-EPI 1:200000 PF 30 ML VIAL SUBQ ONE (14:06)
[2021-03-13] MEDS ORDERED: VASOPRESSIN 20 UNIT/ML VIAL ONE (14:15)
[2021-03-13] MEDS ORDERED: VASOPRESSIN 20 UNIT/ML VIAL IVP ONE (14:17)
--- NOTE | 2021-03-13 14:54 | OPERATIVE REPORT ---
Operative Report - General Procedure Date: 03/13/21 Planned Procedure: Suction D&C Pre-Op Diagnosis: Incomplete SAB measuring 8w2d Procedure Performed: Suction D&C Post Op Diagnosis: Same - Procedure Note Primary Surgeon: Winsome Zambrano MD Anesthesia Provider: Yeny Farmer CRNA/ Minesh Garg CRNA Anesthesia Technique: General mask Pathology: Uterine contents/products of conception IV Fluids (mL): 1,000 Estimated Blood Loss (mL): 10 Urine Output (mL): 50 (In and out catherization) Indications: Patient is a 30 yo at approximately 11 wga by LMP dating with incomplete SAB dating to 8w2d by us; no pole noted.. Patient had been followed by SMITH Suarez CNM. Patient was presented with options for management and preferred to proceed with surgical management. Blood type confirmed to be A positive. Us reports reviewed. Report on 03/10/21 showed a gestational sac consistent with 8w2d with an irregularly shaped yolk sac. No pole. No cardiac activity. R/B/A to the procedure were again reviewed with patient this am. She confirms her desire to proceeed with surgical management via suction D&C. Findings: Uterus enlarged to approximately 6-8 weeks size. Nulliparous cervix. Tissue collected c/w POCs. Complications: None - Other Other Information/Narrative: Risks benefits and alternatives to the procedure were reviewed. Consent was again confirmed. Patient was taken to the operating room where she underwent general anesthesia. She was positioned in dorsolithotomy position with legs resting in yellowfin stirrups. She was prepped and draped in the usual sterile fashion. Doxycycline 200 mg po given in Preop. Preoperative checklist was performed. Exam under anesthesia was performed. Speculum was placed in the vagina and the cervix was visualized. Single-tooth tenaculum was placed at the anterior cervical lip. Paracervical block was administered using a total of 30 cc of 0.5% bupivicaine with epinephrine was injected at the 4:00 and 8:00 positions lateral to the portio of the cervix. The cervix was serially dilated to accommodate at 7 mm flexible suction catheter. A total of 5 cc of vasopressin 10 units/50 cc NS was injected to assist with further cervical dilation. The internal os was resistant to further dilation without traumatizing the cervix. The cervical os was adequately dilated to accommodate the caliber of the 7 mm flexible suction catheter. The 7 mm flexible catheter was inserted into the cervical os. Tissue was cleared from cavity in 4 passes. Gentle sharp curettage was performed to confirm clearance of tissue from the uterine cavity. One additional pass with the 7 mm suction catheter was performed and no further tissue was collected. Single toothed tenaculum was removed. Silver nitrate was applied to the tenac[place] sites and good hemostasis was noted. All instruments were removed from the vagina. Procedure was well tolerated and without complication.
[2021-03-13] MEDS ORDERED: oxyCODONE 5 MG TABLET PO PRN (15:01)
[2021-03-13] MEDS ORDERED: ONDANSETRON ODT 4 MG TABLET TL PRN (15:01)
--- NOTE | 2021-03-13 15:01 | ANESTHESIA POST OP EVALUATION ---
Anesthesia Post Eval - Post Anesthesia Eval Vitals: Last Vital Signs Temp 36.2 C L 03/13/21 14:45 Pulse 108 H 03/13/21 14:45 Resp 24 03/13/21 14:45 BP 109/62 03/13/21 14:45 Pulse Ox 100 03/13/21 14:45 CV Function Including HR & BP: Stable Pain Control: Satisfactory Nausea & Vomiting: Negative Mental Status: Baseline Respiratory Status: Airway Patent Hydration Status: Satisfactory Anesthesia Complications: None
[2021-03-13 15:31] VITALS: BP 119/71
== END 2021-03-13 11:49 | disposition home or self-care (01) ==
LOC: SDS 11:48
PROVIDERS: ATTEND Obstetrics & Gynecology
PROC: 10D17ZZ Extraction of Products of Conception, Retained, Via Natural or Artificial Opening (ICD-10-PCS; principal; 2021-03-13 13:00)
DX: O02.1 Missed abortion (principal)
CPT/HCPCS: 59820; A9270; J7120; 81025; 88305